=== PATIENT | female | born 1980 | race Hispanic/Latino ===

== ENCOUNTER 2021-08-31 06:42 | Day surgery (SDC) | payer OTHER, SELFPAY ==
[2021-08-27 16:22] LABS: BASOPHILS % (AUTO) 0.5 % (0.0-5.0); EOSINOPHILS % (AUTO) 1.3 % (0.0-8.0); HEMATOCRIT 36.2 % (36-48); LYMPHOCYTES % (AUTO) 27.1 % (21.0-51.0); MEAN CORPUSCULAR HEMOGLOBIN 30.3 pg (27.0-33.0); MEAN CORPUSCULAR HGB CONC 33.4 g/dL (32.0-36.0); MEAN CORPUSCULAR VOLUME 90.5 fL (79-99); MONOCYTES % (AUTO) 7.3 % (3.0-13.0); NEUTROPHILS % (AUTO) 63.6 % (40.0-77.0); PLATELET COUNT (AUTO) 227 K/uL (130-400); WHITE BLOOD COUNT (AUTO) 5.5 K/uL (4.8-10.8)
[2021-08-27 16:58] LABS: CREATININE 0.5 mg/dL (0.5-1.5); POTASSIUM 3.9 mmol/L (3.5-5.1)
[2021-08-30 12:58] VITALS: BP 126/73
[~2021-08-31] VITALS: Ht 152.4 cm; Wt 71.2 kg
[2021-08-31] VITALS (16 sets, daily range): BP systolic 102–127; BP diastolic 67–86
[2021-08-31] MEDS ORDERED: LACTATED RINGERS 1000ML 1,000 ML IV ONE (07:24)
[2021-08-31] MEDS ORDERED: BUPIVACAINE/PF 0.5% 30ML VIAL ONE (07:33)
[2021-08-31] MEDS ORDERED: 0.9%NACL 1000ML 1,000 ML IV SCH (08:00)
[2021-08-31] MEDS: LACTATED RINGERS 1000ML 1,000 ML IV SCH (08:03)
[2021-08-31] MEDS ORDERED: PROPOFOL 10 MG/ML 20ML VIAL IV ONE (08:53)
[2021-08-31] MEDS ORDERED: MIDAZOLAM HCL 1 MG/ML 2ML VIAL ONE (08:53)
[2021-08-31] MEDS ORDERED: SUCCINYLCHOLINE 200MG/10ML SYR ONE (08:53)
[2021-08-31] MEDS ORDERED: ROCURONIUM 10MG/1ML SYR 10 MG/ML ML ONE (08:53)
[2021-08-31] MEDS ORDERED: FENTANYL CITRATE PF 50 MCG/1 ML 2ML VIAL ONE (08:53)
[2021-08-31] MEDS ORDERED: ROPIVACAINE 0.5% 5MG/ML 30ML IJ ONE (08:57)
[2021-08-31] MEDS: CEFAZOLIN SODIUM 1 GM VIAL IVP ONE (09:30)
[2021-08-31] MEDS ORDERED: NEOSTIGMINE 5MG/5ML SYR IV ONE (10:32)
[2021-08-31] MEDS ORDERED: GLYCOPYRROLATE 1 MG/5 ML SYRINGE ONE (10:32)
[2021-08-31] MEDS ORDERED: DEXAMETHASONE SOD PHOSPHATE 10MG/ML 1ML VIAL ONE (10:39)
[2021-08-31] MEDS: MEPERIDINE-PF 25 MG/ML SYG ONE (11:10)
== END 2021-08-31 12:50 | disposition home or self-care (01) ==
LOC: DAH 06:42
PROVIDERS: ATTEND Surgery
DX: K40.90 Unilateral inguinal hernia, without obstruction or gangrene, not specified as recurrent (principal); Z20.822 Contact with and (suspected) exposure to COVID-19; E66.9 Obesity, unspecified; Z68.32 Body mass index [BMI] 32.0-32.9, adult
CPT/HCPCS: 36415 ×2; 49505; 64487; 80048; 81025; 85025; 87426; 88302; A4215; A4221; A4222; A4223; A4452; A4600; A4663; A4930; A6260; C1781; J0330; J0690; J1100; J2175; J2250; J2704; J2710; J2795; J3010; J3490; J7120